=== PATIENT | female | born 1995 | race Caucasian/White ===

== ENCOUNTER 2025-09-16 00:17 | Inpatient (IN) | payer OTHER ==
[~2025-09-16] VITALS: Ht 157.5 cm; Wt 77.6 kg
[2025-09-16] MEDS ORDERED: MAGNESIUM HYDROXIDE/AL HYDROX 30 ML CUP PO PRN (00:30)
[2025-09-16] MEDS ORDERED: TERBUTALINE SULFATE 1 MG/ML AMP SUB-Q PRN (00:30)
[2025-09-16] MEDS ORDERED: CALCIUM CARBONATE 500 MG CHEW PO PRN (00:30)
[2025-09-16] MEDS ORDERED: LIDOCAINE HCL 1% 30 ML SDV INJ PRN (00:30)
[2025-09-16] MEDS ORDERED: LACTATED RINGER'S 1,000 ML IV PRN (00:45)
[2025-09-16 01:03] LABS: MCH 30.5 PG (25.6-32.2); MCHC 34.0 g/dL (32.2-35.5); MCV 89.7 fL (79.4-94.8); RBC 4.26 M/uL (3.93-5.22)
[2025-09-16 01:20] LABS: AMPHETAMINES, URINE NEGATIVE (NEGATIVE); BARBITURATES, URINE NEGATIVE (NEGATIVE); BENZODIAZEPINE, URINE NEGATIVE (NEGATIVE); CANNABINOID, URINE NEGATIVE (NEGATIVE); COCAINE, URINE NEGATIVE (NEGATIVE); ECSTASY, URINE NEGATIVE (NEGATIVE); FENTANYL, URINE NEGATIVE (NEGATIVE); METHADONE, URINE NEGATIVE (NEGATIVE); OPIATES, URINE NEGATIVE (NEGATIVE); OXYCODONE, URINE NEGATIVE (NEGATIVE); PHENCYCLIDINE, URINE NEGATIVE (NEGATIVE)
[2025-09-16 01:46] LABS: ABO A; ANTIBODY SCREEN NEGATIVE; RH POSITIVE
--- NOTE | 2025-09-16 20:40 | PR ---
[facility] [address] [place], [place] [address] Signed Progress Notes IP Datetime Report Generated by CPN: 09/16/2025 20:40 PROGRESS NOTES: [id number] Impression: Reassuring Heart Rate Other Procedures: Cook catheter insertion Plan: Continue Present Management; Cervical Ripening Informed Consent Obtain: Induction of Labor Other Informed Consents: Cook Cath VITAL SIGNS: [id number] Vital Signs: Reviewed; Within Normal Limits EXAM: [id number] Dilatation: 1.0 Effacement: 40 Effacement: 40 Effacement: 20 Effacement: 20 Station: -2 Station: -2 Station: -3 Station: -3 Contractions: Rare MEMBRANES: [id number] Comments: Pt seen and examined. Cervix unchanged. Reviewed options and pt would like Cook cath inserted. Reviewed procedure and device. Cook cath easily placed per switch box installer's recommendations and RN will serially inflate balloons to 80cc. Anticipate AROM in the AM. All questions answered. FETUS A: [id number] FHR Baseline: 135 Variability: Moderate 6-25bpm Accelerations: 15X15 Decelerations: None FHR Category: Category I Presentation: Vertex Comments on Fetus A: No evidence of metabolic acidosis FETUS B: [id number] Signing Physician: Elena Doherty DO *Electronically Signed* 09/16/252039 ELENA DOHERTY (RIDDHI) DO PATIENT NAME: STAR ROSENBAUM PROGRESS NOTE DATE OF : 97 PHYSICIAN: ELENA DOHERTY (JD) DO RPT #: [id number] REPORT IS CONFIDENTIAL AND NOT TO BE RELEASED WITHOUT AUTHORIZATION
--- NOTE | 2025-09-17 09:48 | PR ---
[facility] [address] [place] [address] Signed Progress Notes IP Datetime Report Generated by CPN: 09/17/2025 09:48 Impression: Normal Progression of Labor; Reassuring Heart Rate Other Procedures: Removal of cook cath Plan: Continue Present Management Other Plans: AROM when staffing available. Dilatation: 5.0 Effacement: 60 Station: -2 Contractions: Irregular mild Comments: Pt seen and examined. Cook cath resting in vagina. Removed w/out difficulty. Cervix examined and ripe. Will plan AROM in the near future. All questions answered. Variability: Moderate 6-25bpm Decelerations: None FHR Category: Category I Signing Physician: Elena Doherty DO Copies: ~ *Electronically Signed* 09/17/25 0948 ELENA DOHERTY) PATIENT NAME: STAR ROSENBAUM PROGRESS NOTE DATE OF : 97 PHYSICIAN: ELENA DOHERTY DO (JD) RPT #: [id number] REPORT IS CONFIDENTIAL AND NOT TO BE RELEASED WITHOUT AUTHORIZATION
--- NOTE | 2025-09-17 21:03 | PR ---
[facility] [address] [facility] [place], [place] [address] Signed Progress Notes IP Datetime Report Generated by CPN: 09/17/2025 21:03 Impression: Reassuring Heart Rate Procedures: Sterile Vag Exam Plan: Continue Present Management Dilatation: 5.0 Effacement: 60 Contractions: irritability Comments: Pt seen and examined. Doing well. Pt still 5cm and having very mild cramping but not painful / bothersome. Pt reports she is in a good mood. Understanding that induction is on hold due to staffing issues. Reviewed reassuring status and cervix. Will proceed with induction w/ AROM when able. Variability: Moderate 6-25bpm Decelerations: None FHR Category: Category I Signing Physician: Elena Doherty DO Copies: ~ *Electronically Signed* 09/17/252102 ELENA DOHERTY) DO PATIENT NAME: STAR ROSENBAUM PROGRESS NOTE DATE OF : 97 PHYSICIAN: ELENA DOHERTY DO (JD) RPT #: [id number] REPORT IS CONFIDENTIAL AND NOT TO BE RELEASED WITHOUT AUTHORIZATION
--- NOTE | 2025-09-18 09:32 | PR ---
[facility] [address] [facility] [place], [place] [address] Signed Progress Notes IP Datetime Report Generated by CPN: 09/18/2025 09:32 Impression: Normal Progression of Labor; Reassuring Heart Rate Procedures: Artificial ROM; Sterile Vag Exam Plan: Continue Present Management Informed Consent Obtain: Vaginal Delivery; Risks, Benefits and Alternatives Discussed Dilatation: 5.0 Effacement: 50 Station: -2 Contractions: Irritabile; nontender Comments: Pt seen and examined. Doing well. Comfortable. Ready to proceed with next step of induction of labor w/ AROM. Reviewed plan of care and AROM w/ pt who agrees. AROM easily performed for small amount of clear fluid after ensuring that vertex is well applied. All questions answered. Variability: Moderate 6-25bpm Decelerations: None FHR Category: Category I Signing Physician: Elena Doherty DO Copies: ~ *Electronically Signed* 09/18/2532 ELENA DOHERTY (RIDDHI) DO PATIENT NAME: STAR ROSENBAUM PROGRESS NOTE DATE OF : 97 PHYSICIAN: ELENA DOHERTY (RIDDHI) DO RPT #: [id number] REPORT IS CONFIDENTIAL AND NOT TO BE RELEASED WITHOUT AUTHORIZATION
[2025-09-18] MEDS ORDERED: OXYTOCIN/0.9 % SODIUM CHLORIDE 500 ML IV SCH (14:00)
[2025-09-18] MEDS ORDERED: LACTATED RINGER'S 2,000 ML IV ONE (17:00)
[2025-09-18] MEDS ORDERED: ePHEDrine sulfate 5 MG/ML SYRINGE IV PRN (17:00)
[2025-09-18] MEDS ORDERED: LACTATED RINGER'S 500 ML IV PRN (17:00)
[2025-09-18] MEDS ORDERED: ROPIVACAINE 0.2% 200 ML BAG EPIDURAL SCH (17:00)
--- NOTE | 2025-09-18 17:33 | PR ---
[facility] [address] [place], [place] [address] Signed Progress Notes IP Datetime Report Generated by CPN: 09/18/2025 17:33 Impression: Normal Progression of Labor; Reassuring Heart Rate Procedures: Sterile Vag Exam Plan: Augmentation Informed Consent Obtain: Vaginal Delivery Dilatation: 5.0 Effacement: 50 Effacement: 50 Station: -2 Station: -2 Contractions: q 2 - 3 min Comments: Pt seen and examined. Doing well. Pt did not make cervical change or develop regular painful contractions w/ AROM alone. Pitocin augmentation was started and contractions became more painful. Pt requested epidural which was kindly placed by anesthesia. Pt now much more comfortable. Pitocin at 6. Cervix again unchanged on exam. Discussed goals of labor induction / augmentation w/ pitocin. Discussed role of IUPC and pt declines IUPC at this time but if unchanged at next exam would desire. Reviewed anticipated course of induction, risks/benefits of pitocin, and risk of intra-amniotic infection / inflammation and strategies to reduce these risks. Pt and family understand and agree and all questions answered. Variability: Moderate 6-25bpm Decelerations: None FHR Category: Category I Signing Physician: Elena Doherty DO Copies: ~ *Electronically Signed* 09/18/25 3615 ELENA DOHERTY (RIDDHI) DO PATIENT NAME: STAR ROSENBAUM PROGRESS NOTE DATE OF : 97 PHYSICIAN: ELENA DOHERTY (JD) DO RPT #: [id number] REPORT IS CONFIDENTIAL AND NOT TO BE RELEASED WITHOUT AUTHORIZATION
[2025-09-18] MEDS ORDERED: Ropivacaine HCl 0.5% 30 ML VIAL ONE (18:17)
[2025-09-18] MEDS ORDERED: fentaNYL citrate 100 MCG/2 ML VIAL ONE (18:17)
[2025-09-18] MEDS ORDERED: ROPIVACAINE 0.2% 200 ML BAG ONE (18:17)
--- NOTE | 2025-09-18 20:29 | PR ---
[facility] [address] [facility] [place], [place] [address] Signed Progress Notes IP Datetime Report Generated by CPN: 09/18/2025 20:29 Impression: Reassuring Heart Rate Procedures: Intrauterine Pressure Catheter; Sterile Vag Exam Plan: Augmentation Informed Consent Obtain: Vaginal Delivery; Section Delivery; Vacuum/Forceps Assist; Risks, Benefits and Alternatives Discussed Other Informed Consents: Reviewed anticipated course of 2nd stage of labor and risks Dilatation: 5.0 Effacement: 50 Station: -1 Contractions: Irregular; difficult to trace Comments: Pt seen and examined. Doing well. Minimal changes in dilation / effacement, however cervix much softer, lower position and more anterior. Recommended IUPC which was easily placed after maternal consent obtained. Will titrate pitocin to optimal [place] units. Reviewed anticipated course of 2nd stage of labor and expectation for . Reviewed cat 1 tracing and no evidence of intra-amniotic infection. Variability: Moderate 6-25bpm Decelerations: None FHR Category: Category I Signing Physician: Elena Doherty DO Copies: ~ *Electronically Signed* 09/18/252028 ELENA DOHERTY (RIDDHI) DO PATIENT NAME: STAR ROSENBAUM PROGRESS NOTE DATE OF : 97 PHYSICIAN: ELENA DOHERTY) DO RPT #: [id number] REPORT IS CONFIDENTIAL AND NOT TO BE RELEASED WITHOUT AUTHORIZATION
--- NOTE | 2025-09-19 03:21 | PR ---
[facility] [address] [facility] [place] [address] Signed Progress Notes IP Datetime Report Generated by CPN: 09/19/2025 03:20 Impression: Normal Progression of Labor; Reassuring Heart Rate Procedures: Sterile Vag Exam Plan: Anticipate Vaginal Delivery Informed Consent Obtain: Vaginal Delivery; Risks, Benefits and Alternatives Discussed Dilatation: 10.0 Effacement: 100 Effacement: 75 Station: 1 Station: -1 Contractions: q 2 min Comments: Called to pt room. Pt complete and +3 station. Prepare for . Glucose =77 Variability: Moderate 6-25bpm Decelerations: None FHR Category: Category II Signing Physician: Elena Doherty DO Copies: ~ *Electronically Signed* 09/19/25 0320 ELENA DOHERTY) DO PATIENT NAME: STAR ROSENBAUM PROGRESS NOTE DATE OF : 97 PHYSICIAN: ELENA DOHERTY (JD) DO RPT #: [id number] REPORT IS CONFIDENTIAL AND NOT TO BE RELEASED WITHOUT AUTHORIZATION
[2025-09-19] MEDS ORDERED: TRANEXAMIC ACID IN NACL,ISO-OS 0 ML IV ONE (03:42)
[2025-09-19] MEDS ORDERED: OXYTOCIN/0.9 % SODIUM CHLORIDE 30 UNITS/500 ML BAG IV SCH (04:15)
[2025-09-19] MEDS ORDERED: OXYTOCIN/0.9 % SODIUM CHLORIDE 500 ML IV SCH (04:30)
[2025-09-19] MEDS ORDERED: OXYCODONE/APAP 5/325 TAB PO PRN (04:30)
[2025-09-19] MEDS ORDERED: WITCH HAZEL/GLYCERIN 1 EA PAD TOP PRN (04:30)
[2025-09-19] MEDS ORDERED: BENZOCAINE 60 ML AEROSOL TOP PRN (04:30)
[2025-09-19] MEDS ORDERED: MAGNESIUM HYDROXIDE/AL HYDROX 30 ML CUP PO PRN (04:30)
[2025-09-19] MEDS ORDERED: CALCIUM CARBONATE 500 MG CHEW PO PRN (04:30)
[2025-09-19] MEDS ORDERED: IBUPROFEN 600 MG TAB PO PRN (04:30)
[2025-09-19] MEDS ORDERED: MAGNESIUM HYDROXIDE 30 ML UDC PO PRN (04:30)
[2025-09-19] MEDS ORDERED: ACETAMINOPHEN 325 MG TAB PO PRN (04:30)
[2025-09-19] MEDS ORDERED: HYDROCODONE/ACETA 5/325 TAB PO PRN (04:30)
[2025-09-19] MEDS ORDERED: HYDROCORTISONE ACETATE 25 MG SUPP PR PRN (04:30)
[2025-09-19] MEDS ORDERED: LACTATED RINGER'S 1,000 ML IV ONE (08:00)
[2025-09-19] MEDS ORDERED: TRANEXAMIC ACID IN NACL,ISO-OS 1,000 MG/100 ML PIGGYBACK IV ONE (08:30)
[2025-09-19] MEDS ORDERED: SENNOSIDES/DOCUSATE 1 EA TAB PO SCH (09:00)
[2025-09-19 09:08] LABS: MCH 30.7 PG (25.6-32.2); MCHC 34.3 g/dL (32.2-35.5); MCV 89.4 fL (79.4-94.8); RBC 3.78 M/uL (3.93-5.22)
[2025-09-20 05:23] LABS: MCH 30.4 PG (25.6-32.2); MCHC 33.4 g/dL (32.2-35.5); MCV 90.9 fL (79.4-94.8); RBC 3.62 M/uL (3.93-5.22)
--- NOTE | 2025-09-20 09:02 | PR ---
[facility] [address] [facility] [place], [place] [address] Signed PP Progress Notes Datetime Report Generated by CPN: 09/20/2025 09:02 SUBJECTIVE: [id number] Pain: Within Normal Limits Nausea/Vomiting: Denies Flatus: Yes Bowel Movement: No Vital Signs: [id number] Vital Signs: Reviewed; Within Normal Limits Cardiovascular: Normal Respiratory: Normal Abdomen/Uterus: Normal Lochia: Normal Vulva/Perineum: Not Done Breasts: Not Done CVA Tenderness: Normal Extremities: Normal Incision: Not Applicable Progress: Normal Exam Comments: Fundus firm U-2 nontender IMPRESSION/PLAN/PROCEDURES: [id number] Impression: Normal Progression Plan: Discharge Progress Notes: Pt seen and examined. Doing well. Ambulating, voiding, and tolerating full diet. Pain and lochia minimal. well. No fever/chills. No other concerns. Desires d/c home. Reviewed d/c instructions / medications. Reviewed importance of 6-12 wk pp glucose screen. All questions answered. F/U 6 wk in office Signing Physician: Elena Doherty DO Copies: ~ *Electronically Signed* 09/20/25901 ELENA DOHERTY (RIDDHI) DO PATIENT NAME: STAR ROSENBAUM PROGRESS NOTE DATE OF : 97 PHYSICIAN: ELENA DOHERTY (JD) DO RPT #: [id number] REPORT IS CONFIDENTIAL AND NOT TO BE RELEASED WITHOUT AUTHORIZATION
== END 2025-09-20 14:30 | disposition home or self-care (01) | DRG 807 ==
LOC: FBC 00:17
PROVIDERS: ADMIT Obstetrics & Gynecology; ATTEND Obstetrics & Gynecology
PROC: 0U7C7ZZ Dilation of Cervix, Via Natural or Artificial Opening (ICD-10-PCS; principal; 2025-09-19)
PROC: 10E0XZZ Delivery of Products of Conception, External Approach (ICD-10-PCS; principal; 2025-09-19)
PROC: 10H07YZ Insertion of Other Device into Products of Conception, Via Natural or Artificial Opening (ICD-10-PCS; principal; 2025-09-19)
PROC: 10907ZC Drainage of Amniotic Fluid, Therapeutic from Products of Conception, Via Natural or Artificial Opening (ICD-10-PCS; principal; 2025-09-19)
PROC: 0KQM0ZZ Repair Perineum Muscle, Open Approach (ICD-10-PCS; principal; 2025-09-19)
DX: O24.420 Gestational diabetes mellitus in childbirth, diet controlled (principal); Z37.0 Single live birth; O48.0 Post-term pregnancy; O70.1 Second degree perineal laceration during delivery; Z3A.40 40 weeks gestation of pregnancy; Z79.899 Other long term (current) drug therapy
CPT/HCPCS: 36415; 80307; 85027; 86850; 86900; 86901; A9270; J2795; J3010; J7121